=== PATIENT | male | born 1995 | race African-American/Black ===

== ENCOUNTER 2021-12-11 21:21 | Emergency (ER) | payer OTHER, SELFPAY ==
[2021-12-11] MEDS ORDERED: NA CHLORIDE 0.9% 1,000 ML ONE (22:52)
[2021-12-11] MEDS ORDERED: DIAZEPAM 2 MG TABLET ONE (22:52)
[2021-12-11 23:37] LABS: Absolute Lymphocytes (CBC) 2.3 K/uL (0.7-4.9); Hematocrit 47.3 % (39.6-49.0); Lymphocytes % 30.8 % (15.3-44.8); MCV 94.8 fL (80-100); MPV 10.7 fL (7.6-11.3); RBC Red Blood Cell Count 4.99 M/uL (4.33-5.43)
[2021-12-12 00:34] LABS: Potassium 3.4 mmol/L (3.5-5.1); Troponin High Sensitivity 8.7 pg/mL (<58.9)
--- NOTE | 2021-12-12 00:45 | ER ---
Nurse's Notes [facility] Name: Willian Tello Age: 26 yrs Sex: Male : 1995 Arrival Date: 12/11/2021 Time: 21:30 Bed 6 Private MD: Diagnosis: Anxiety disorder, unspecified;Hyperventilation Presentation: 12/11 22:06 Chief complaint: Patient states: Earlier in the day I had a panic attack out of the jb4 blue. I have had them in the past with triggers but this time was different. I started feeling numb in my arms, legs, and face as well as having shortness of breath. Coronavirus screen: At this time, the client does not indicate any symptoms associated with coronavirus-19. Ebola Screen: No symptoms or risks identified at this time. Initial Sepsis Screen: Does the patient meet any 2 criteria? No. Patient's initial sepsis screen is negative. Does the patient have a suspected source of infection? No. Patient's initial sepsis screen is negative. Risk Assessment: Do you want to hurt yourself or someone else? Patient reports no desire to harm self or others. Onset of symptoms was December 11, 2021. Transition of care: patient was not received from another setting of care. 22:06 Method Of Arrival: Ambulatory jb4 22:06 Acuity: DOROTHY 3 jb4 Historical: - Allergies: 22:11 No Known Allergies; jb4 - Home Meds: 22:11 Zoloft Oral [Active]; jb4 - PMHx: 22:11 Anxiety; Depressive disorder; jb4 - PSHx: 22:11 None; jb4 - Immunization history:: Adult Immunizations not up to date, Pfizer x2. - Social history:: Smoking status: Reported history of juuling and/or vaping. Patient uses alcohol, occasionally. street drugs, marijuana. - Family history:: not pertinent. - Hospitalizations: : No recent hospitalization is reported. Screenin:12 Abuse screen: Denies threats or abuse. Nutritional screening: No deficits noted. jb4 Tuberculosis screening: No symptoms or risk factors identified. Fall Risk None identified. Assessment: 22:12 General: Appears in no apparent distress. comfortable, Behavior is calm, cooperative, jb4 appropriate for age. Pain: Denies pain. Neuro: Level of Consciousness is awake, alert, obeys commands, Oriented to person, place, time, situation. Cardiovascular: Patient's skin is warm and dry. Rhythm is sinus bradycardia with sinus arrythmia. Respiratory: Airway is patent Respiratory effort is even, unlabored, Respiratory pattern is regular, symmetrical. Derm: Skin is intact, Skin is dry, Skin is normal, Skin temperature is warm. Musculoskeletal: Circulation, motion, and sensation intact. Range of motion: intact in all extremities. 23:30 Reassessment: Patient appears in no apparent distress at this time. Patient and/or jb4 family updated on plan of care and expected duration. Pain level reassessed. Patient is alert, oriented x 3, equal unlabored respirations, skin warm/dry/pink. Patient states feeling better. Patient states symptoms have improved. 12/12 01:00 Reassessment: Patient appears in no apparent distress at this time. Patient and/or jb4 family updated on plan of care and expected duration. Pain level reassessed. Patient is alert, oriented x 3, equal unlabored respirations, skin warm/dry/pink. Vital Signs: 12/11 22:06 BP 127 / 61; Pulse 63; Resp 16; Temp 98.6(O); Pulse Ox 100% on R/A; Weight 53.07 kg jb4 (R); Height 5 ft. 10 in. (177.80 cm) (R); Pain 0/10; 23:30 BP 111 / 76; Pulse 59; Resp 16; Pulse Ox 100% on R/A; jb4 12/12 01:00 BP 108 / 74; Pulse 52; Resp 18; Pulse Ox 99% on R/A; 4 12/11 22:06 Body Mass Index 16.79 (53.07 kg, 177.80 cm) [facility] ED Course: 12/11 21:30 Patient arrived in ED. bp1 21:42 Sandeep Martinez MD is Attending Physician. rn 22:05 Mesfin Nevarez RN is Primary Nurse. jb4 22:11 Triage completed. jb4 22:11 Arm band placed on right wrist. jb4 22:12 Patient has correct armband on for positive identification. Placed in gown. Bed in low jb4 position. Call light in reach. Side rails up X 1. Client placed on continuous cardiac and pulse oximetry monitoring. NIBP monitoring applied. procurement clerk on. 22:12 Patient maintains SpO2 saturation greater than 95% on room air. jb4 22:30 Initial lab(s) drawn, by wa, sent to lab. Inserted saline lock: 18 gauge in right jb4 forearm, using aseptic technique. Blood collected. 22:41 Basic Metabolic Panel Sent. jb4 22:41 CBC with Diff Sent. jb4 22:41 Troponin HS Sent. jb4 22:41 D-Dimer Sent. jb4 12/12 01:00 No provider procedures requiring assistance completed. IV discontinued, intact, jb4 bleeding controlled, No redness/swelling at site. Pressure dressing applied. Administered Medications: 12/11 22:46 Drug: Valium (diazepam) 2 mg Route: PO; jb4 23:30 Follow up: Response: No adverse reaction; Marked relief of symptoms jb4 :46 Drug: NS 0.9% 1000 ml Route: IV; Rate: 1000 ml; Site: right forearm; jb4 23:30 Follow up: Response: No adverse reaction; IV Status: Completed infusion; IV Intake: jb4 1000ml Medication: 22:12 VIS not applicable for this client. jb4 Intake: 23:30 IV: 1000ml; Total: 1000ml. jb4 Outcome: 12/12 00:44 Discharge ordered by . rn 01:10 Discharged to home ambulatory. jb4 01:10 Condition: stable 01:10 Discharge instructions given to patient, Instructed on discharge instructions, follow up and referral plans. Demonstrated understanding of instructions, follow-up care. 01:16 Patient left the ED. jb4 Signatures: Sandeep Martinez MD MD rn Bryson, James, RN RN jb Dora Marshall
--- NOTE | 2021-12-12 00:45 | EDPHYS ---
Physician Documentation [facility] Name: Willian Tello Age: 26 yrs Sex: Male : 1995 Arrival Date: 12/11/2021 Time: 21:30 Bed 6 Private MD: ED Physician Sandeep Martinez HPI: 12/11 22:08 This 26 yrs old Black Male presents to ER via Unassigned with complaints of Chest Pain, rn Anxiety. 22:09 The patient or guardian reports chest pain that is located primarily in the chest rn diffusely. The pain does not radiate. Associated signs and symptoms: Pertinent positives: dizziness, palpitations, Pertinent negatives: abdominal pain, syncope. The chest pain is described as tight. Duration: The patient or guardian reports a single episode. Modifying factors: The symptoms are alleviated by nothing. the symptoms are aggravated by nothing. Severity of pain: At its worst the pain was mild in the emergency department the pain has improved. The patient has experienced similar episodes in the past. The patient has not recently seen a physician. Pt reports thinks had a panic attack, was at rest, felt lightheaded, dizzy, heart racing, numb all over especially in extremities, started on zoloft recently this week for anxiety and depression. No drug use. Reports has had similar episodes in past but never this bad. Reports also having chronic nausea/vomiting/diarrhea. NO blood in stool. Feeling much better already without intervention.. Historical: - Allergies: 22:11 No Known Allergies; jb4 - Home Meds: 22:11 Zoloft Oral [Active]; jb4 - PMHx: 22:11 Anxiety; Depressive disorder; jb4 - PSHx: 22:11 None; jb4 - Immunization history:: Adult Immunizations not up to date, Pfizer x2. - Social history:: Smoking status: Reported history of juuling and/or vaping. Patient uses alcohol, occasionally. street drugs, marijuana. - Family history:: not pertinent. - Hospitalizations: : No recent hospitalization is reported. ROS: 22:09 Constitutional: Negative for fever, chills, and weight loss, Eyes: Negative for injury, rn pain, redness, and discharge, ENT: Negative for injury, pain, and discharge, Neck: Negative for injury, pain, and swelling, Cardiovascular: Negative for edema Respiratory: Negative for cough, wheezing, and pleuritic chest pain, Abdomen/GI: Negative for abdominal pain, and constipation, Back: Negative for injury and pain, MS/Extremity: Negative for injury and deformity, Skin: Negative for injury, rash, and discoloration, Neuro: Negative for headache, and seizure. Exam: 22:09 Constitutional: Very thin male, no acute distress. Head/Face: Normocephalic, rn atraumatic. Eyes: Periorbital areas with no swelling, redness, or edema. Cardiovascular: Regular rate and rhythm. No pulse deficits. Respiratory: Speaking full sentences, unlabored. No increased work of breathing, no retractions or nasal flaring. Abdomen/GI: Soft, non-tender Skin: Warm, dry MS/ Extremity: Pulses equal, no cyanosis. Neuro: Awake and alert, GCS 15 22:17 ECG was reviewed by the Attending Physician. rn Vital Signs: 22:06 BP 127 / 61; Pulse 63; Resp 16; Temp 98.6(O); Pulse Ox 100% on R/A; Weight 53.07 kg 4 (R); Height 5 ft. 10 in. (177.80 cm) (R); Pain 0/10; 23:30 BP 111 / 76; Pulse 59; Resp 16; Pulse Ox 100% on R/A; 4 12/12 01:00 BP 108 / 74; Pulse 52; Resp 18; Pulse Ox 99% on R/A; 4 12/11 22:06 Body Mass Index 16.79 (53.07 kg, 177.80 cm) [facility] MDM: 12/11 21:42 Patient medically screened. rn 23:48 ED course: pt feels much better, awaiting lab results.. rn 12/12 00:39 Differential diagnosis: acute pericarditis, anxiety, chest wall pain, pleurisy, rn anxiety, hyperventilation, panic attack. Data reviewed: vital signs, nurses notes, lab test result(s), EKG, and as a result, I will discharge patient. Counseling: I had a detailed discussion with the patient and/or guardian regarding: the historical points, exam findings, and any diagnostic results supporting the discharge/admit diagnosis, lab results. 00:42 ED course: Pt's symptoms have resolved, much better on arrival and valium took care of rn rest, 100% oxygen saturation, stable vitals, no acute findings on ECG or bloodwork. PT thankful and ready to go home. Troponin and d-dimer neg as well. . 12/11 21:59 Order name: CBC with Diff; Complete Time: 23:41 rn 12/11 21:59 Order name: Basic Metabolic Panel; Complete Time: 00:39 rn 12/11 21:59 Order name: Troponin HS; Complete Time: 00:39 rn 12/11 21:59 Order name: D-Dimer; Complete Time: 23:47 rn 12/11 21:59 Order name: SARS-COV-2 RT PCR (Document "Date of Onset" if Symptomatic); Complete Time: rn 00:39 12/11 21:39 Order name: EKG; Complete Time: 21:40 tw5 12/11 21:59 Order name: IV Start; Complete Time: 22:41 rn 12/11 21:59 Order name: Cardiac monitoring; Complete Time: 22:14 rn 12/11 21:59 Order name: O2 Sat Monitoring; Complete Time: 22:14 rn 12/11 22:00 Order name: EKG - Nurse/Tech; Complete Time: 22:14 rn EC/28 22:17 Rate is 59 beats/min. Rhythm is regular. QRS [place] is Normal. MN interval is normal. QRS rn interval is normal. QT interval is normal. No Q waves. T waves are Inverted in leads V1, V2, V3. No ST changes noted. Clinical impression: Sinus bradycardia and NOnspecific t wave inversion anterior leads. Interpreted by me. Reviewed by me. Administered Medications: 22:46 Drug: Valium (diazepam) 2 mg Route: PO; jb4 23:30 Follow up: Response: No adverse reaction; Marked relief of symptoms jb4 22:46 Drug: NS 0.9% 1000 ml Route: IV; Rate: 1000 ml; Site: right forearm; jb4 23:30 Follow up: Response: No adverse reaction; IV Status: Completed infusion; IV Intake: jb4 1000ml Disposition Summary: 12/12/21 00:44 Discharge Ordered Location: Home rn Problem: an acute exacerbation rn Symptoms: have improved rn Condition: Stable rn Diagnosis - Anxiety disorder, unspecified rn - Hyperventilation rn Followup: rn - With: Private Physician - When: As needed - Reason: Recheck today's complaints, Re-evaluation by your physician Discharge Instructions: - Discharge Summary Sheet rn - Panic Attack rn - Hyperventilation rn - Generalized Anxiety Disorder, Adult rn Forms: - Medication Reconciliation Form rn - Thank You Letter rn - Antibiotic rn infusion - Prescription Opioid Use rn Signatures: Dispatcher [employer] Sandeep Gomez MD MD rn Bryson, James, RN RN jb4
[2021-12-12 05:03] VITALS: BP 127/61; TEMP 98.6; O2SAT 100
--- NOTE | 2021-12-12 15:19 | EKG ---
Test Date: 2021-12-11 Test Time: 21:45:45 Paper Folding Machine Operator: AZAEL MEASUREMENT RESULTS: Intervals: Rate: 59 GA: 158 QRSD: 96 QT: 420 QTc: 415 [place]: P: 80 GA: 158 QRS: 88 T: 82 INTERPRETIVE STATEMENTS: Sinus bradycardia with sinus arrhythmia T wave abnormality, consider anterior ischemia Abnormal ECG No previous ECG available for comparison Electronically Signed On 12-12-21 15:18:40 CDT by Max Oakes
== END 2021-12-12 01:16 | disposition home or self-care (01) ==
LOC: ER 21:21
DX: R06.4 Hyperventilation (principal); F32.A Depression, unspecified; Z20.822 Contact with and (suspected) exposure to COVID-19
CPT/HCPCS: 93005; 85025; 80048; 36415; 85379; 84484; U0003; J7030; 96360; 99284